=== PATIENT | male | born 2000 | race Caucasian/White ===

== ENCOUNTER 2020-10-22 13:39 | Inpatient (IN) | payer OTHER ==
[~2020-10-22] VITALS: Ht 180.3 cm; Wt 74.2 kg
[2020-10-22 14:17] LABS: HEMATOCRIT 42.8 % (42.0-52.0); HEMOGLOBIN 14.4 g/dl (13.5-17.5); MEAN CORPUSCULAR HEMOGLOBIN 30.8 pg (27.0-33.0); MEAN CORPUSCULAR HGB CONC 33.6 g/dl (32.0-36.5); MEAN CORPUSCULAR VOLUME 91.5 fl (80.0-96.0); PLATELET COUNT, AUTOMATED 253 10^3/uL (150-450); RED BLOOD COUNT 4.68 10^6/uL (4.30-6.10); WHITE BLOOD COUNT 4.9 10^3/uL (4.0-10.0)
[2020-10-22 14:44] LABS: AMPHETAMINES LEVEL URINE NEGATIVE (NEGATIVE); BARBITURATES URINE NEGATIVE (NEGATIVE); BENZODIAZEPINES URINE NEGATIVE (NEGATIVE); CANNABINOIDS URINE NEGATIVE (NEGATIVE); COCAINE METABOLITE URINE NEGATIVE (NEGATIVE); METHADONE URINE NEGATIVE (NEGATIVE); OPIATES URINE NEGATIVE (NEGATIVE); PHENCYCLIDINE URINE NEGATIVE (NEGATIVE)
[2020-10-22 14:59] LABS: ALBUMIN 4.5 GM/DL (3.2-5.2); ALT/SGPT 24 U/L (12-78); BILIRUBIN,DIRECT 0.2 MG/DL (0.0-0.2); BILIRUBIN,TOTAL 0.6 MG/DL (0.2-1.0); BLOOD UREA NITROGEN 19 MG/DL (7-18); CARBON DIOXIDE LEVEL 31 MEQ/L (21-32); CHLORIDE LEVEL 105 MEQ/L (98-107); CREATININE FOR GFR 1.08 MG/DL (0.70-1.30); ETHYL ALCOHOL (ETHANOL) < 0.003 % (0.000-0.010); GLUCOSE, FASTING 63 MG/DL (70-100); SALICYLATE LEVEL < 1.7 MG/DL (5.0-30.0); SODIUM LEVEL 140 MEQ/L (136-145); THYROID STIMULATING HORMONE 0.328 uIU/ML (0.463-3.98); TOTAL PROTEIN 7.5 GM/DL (6.4-8.2)
[2020-10-22 15:00] LABS: ACETAMINOPHEN LEVEL < 2.0 UG/ML (10.0-30.0)
[2020-10-22] MEDS ORDERED: traZODone 50 MG TAB PO PRN (17:00)
[2020-10-22] MEDS ORDERED: ACETAMINOPHEN TAB 650MG DOSE (2X325MG) PO PRN (17:00)
[2020-10-22] MEDS ORDERED: MAALOX 30 ML SUSP *UDC PO PRN (17:00)
[2020-10-22] MEDS ORDERED: MOM 30ML SUSPENSION UDC PO PRN (17:00)
[2020-10-22 17:59] VITALS: BP 126/56
[2020-10-22] MEDS ORDERED: NICOTINE 21MG/24HR 1 EA TRANSDERMAL TD SCH (21:00)
[2020-10-23 05:56] VITALS: BP 122/58
[2020-10-23] MEDS ORDERED: NICOTINE 21MG/24HR 1 EA TRANSDERMAL TD SCH (09:00)
--- NOTE | 2020-10-23 12:45 | MHHPEPDOC ---
General Date Of Admission: Oct 22, 2020 Legal Status: 9.39 Chief Complaint Patient is a self-referral to [facility] reporting depression and vague suicidal thoughts. 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 He states that He had lost a piece of equipment at work (lost a piece of a laser) He states, "I was done. I felt like I was making it a bigger mistake. I felt like it was getting worse, and said that I didn't want to be around, but I didn't have a plan to kill myself." He reports that he continued to ruminate aboput this missing equipment and it depressed. He states that his plan was seek help if he continued to feel down. "It wasn't getting better and I needed to see someone." Per the ED patient is AD 1.5 and is from [place]. ETS is 2021. He does not know why he enlisted except to say it was an impulsive decision. He has not left the country. He reports depression in High School was admitted to [facility] for 2 days for depression and suicidal thoughts. He denies history of suicidal gestures or attempts. Psychiatric Review of Systems Depression (2 or more weeks): depressed mood, anhedonia, insomnia/hypersomnia, decreased energy, difficulty concentrating, appetite changes ("feel like I have lost weight"), psychomotor changes Sylvie (4 or more days of): denies Psychosis: denies Anxiety: gen/non-specific anxiety, situational anxiety, stressor related anxiety, panic attacks (once), denies Anxiety/ 6 months or more of: restlessness, keyed up, difficulty concentrating, irritability, muscle tension, sleep disturbance Past Psychiatric History Previous Psychiatric Diagnosis: Depression Previous Psychiatric Admissions: He stated in the ED that he was admitted to a psychiatric unit for 2 days, on psychiatric interview today he states that he was in [facility]PE[facility] for 3 hours but never had an admission Suicide Attempts: No gestures or attempts Psychiatric Follow-up: will follow up with [facility] Psychiatric medications: None Past Medical History Medical Problems Report Insomnia Surgery- [place] Teeth Extraction Allergies - Bee Venom Protein Head Injury: No Seizures: No Hospitalizations: No Surgeries: No Family Medical/Psychiatric HX Medical Problems Paternal Grandmother - DM Type II Psychiatric Disorders: No Addiction: No Suicide Attemps/Completions: No Addiction History nicotine (Vapes), denies (Denies Drugs or Alcohol Abuse/Dependence) Social History Childhood: Born in [place], lived with his Father until he was 16 years old and then with his Mother thereafter, reports a good childhood. He has 5 full siblings and 2 half siblings Abuse/Trauma: denies Current Living Situation: Lives with his Education: High School Graduate, Employment: Active Duty Social Support: and Family Legal: None Marital: Since July 2020 Mental Status Examination General Appearance: well groomed, appears stated age, hospital scubs/clothing Build: average Demeanor: average Eye Contact: average Activity: average Behavior: cooperative Speech: clear, reg/rate,rhythm,volume Mood: euthymic Affect: appropriate Thought Process: logical/linear Thought Content (Delusions): none reported, denies SI, HI, AVH Thought Content (Other): none reported Thought Content (Aggressive): none reported Perception (Hallucinations): none reported Perception (Other): none reported Cognition (Impairment of): none reported Cognition(Intelligence Est.): average Oriented: Awake, Alert, Oriented times three Insight: good Judgment: Good Psychosis: Denies Diagnoses Adjustment Disorder with Depression Mood and Anxiety Generalized Anxiety Disorder A-FIB/CHADSVASC A-FIB History Current/History of A-Fib/PAF?: No Assessment Patient is a 20 year old , Active Duty, Domiciled , Male who has a history of depressive symptoms and anxiety. He and his newlywed of 2 months recently suffered a miscarriage in August of this year. He reports ruminating excessively over the loss of a piece of equipment that was eventually found. He reports that he ruminated to the point of depression and anxiety over this. He states that in the past he has been impulsive, having racing thoughts history of insomnia and having irritable mood. Patient reports that none of these symptoms of current but there seems to be some evidence of possible Bipolar Symptoms. Patient on interview denies depression and anxiety or suicidal ideation. He is observed with euthymic mood and affect and has a normal mental status exam. He is requesting discharge at this interview. Patient declined a voluntary admission and declined any medication treatment for his symptoms. Patient will be discharged as he meets no criteria for continued hospitalization and he has placed a written request for discharge. I do not see that patient is a danger to himself or others. He is not manic, psychotic, delusional, obsessive, does not report and is not observed with Auditory or Vis ual Hallucinations, He is not paranoid. He has good insight and judgment and he is able to make good and sound decisions. Initial Treatment Plan 1. Patient was admitted on a [9.39] status. 2. Complete history was obtained. 3. With patients permission, family will be contacted and database will be expanded. 4. Patients medication regimen will be reviewed and changed accordingly. 5. Patient will be provided with protected environment. 6. Patient will be treated with individual, group, and milieu therapies. 7. Patient will receive supportive psych-education. 8. Discharge planning will commence immediately. 9. Outpatient follow-up treatment will be strongly recommended. 10. The initial treatment plan will focus initially on: * Depression. * Risk for suicide. ESTIMATED LENGTH OF STAY: 1-3 DAYS. TIME SPENT COUNSELING AND COORDINATING INITIAL CARE: 50 minutes. Vital Signs Vital Signs Date Time Temp Pulse Resp B/P (MAP) Pulse Ox O2 Delivery O2 Flow Rate FiO2 10/23/20 05:56 98.4 56 16 122/58 (79) 97 Room Air Laboratory Data 24H Labs Laboratory Tests 2 10/22/20 14:03: Nucleated Red Blood Cells % (auto) 0.0, Anion Gap 4L, Calcium Level 9.0, Total Bilirubin 0.6, Direct Bilirubin 0.2, Aspartate Amino Transf (AST/SGOT) 14, Alanine Aminotransferase (ALT/SGPT) 24, Alkaline Phosphatase 61, Total Protein 7.5, Albumin 4.5, Albumin/Globulin Ratio 1.5, Thyroid Stimulating Hormone (TSH) 0.328L, Salicylates Level < 1.7L, Urine Opiates Screen NEGATIVE, Urine Methadone Screen NEGATIVE, Acetaminophen Level < 2.0L, Urine Barbiturates Screen NEGATIVE, Urine Phencyclidine Screen NEGATIVE, Urine Amphetamines Screen NEGATIVE, Urine Benzodiazepines Screen NEGATIVE, Urine Cocaine Metabolite Screen NEGATIVE, Urine Cannabinoids Screen NEGATIVE, Ethyl Alcohol Level < 0.003 10/22/20 15:34: Coronavirus (COVID-19)(PCR) NEGATIVE CBC/BMP Laboratory Tests 10/22/20 14:03 Medications No Active Prescriptions or Reported Meds Allergies Coded Allergies: bee venom protein (honey bee) (Verified Allergy, Unknown, swelling, 10/22/20) CHANDAN BRANDT NP Oct 23, 2020 11:37
--- NOTE | 2020-10-23 13:29 | MHDSPDOC ---
[facility] Discharge Summary Discharge Summary DATE OF ADMISSION: Oct 22, 2020 at 16:57 DATE OF DISCHARGE: October 23, 2020 at 1320 DISCHARGE DIAGNOSES: Adjustment Disorder with Depression Mood and Anxiety Generalized Anxiety Disorder REASON FOR ADMISSION: Patient is a self-referral to [facility] reporting depression and vague suicidal thoughts. 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 He states that He had lost a piece of equipment at work (lost a piece of a laser) He states, "I was done. I felt like I was making it a bigger mistake. I felt like it was getting worse, and said that I didn't want to be around, but I didn't have a plan to kill myself." He reports that he continued to ruminate aboput this missing equipment and it depressed. He states that his plan was seek help if he continued to feel down. "It wasn't getting better and I needed to see someone." TREATMENT AND PROGRESS ON THE UNIT: Patient was admitted to the [facility] on a 9.39 legal status he was afforded the following treatment modalities: 1) Individual Therapy 2) Group Therapy 3) Medication Management 4) Milieu Therapy 5) Safe Environment HOSPITAL COURSE: Patient requested a voluntary admission to [facility] and then he wrote a request for discharge. Patient was observed to be compliant with milieu, social with peers and cooperative with admission policies DISCHARGE ASSESSMENT: On initial interview, patient was reporting a decrease in depressive and anxiety symptoms and states that he is requesting discharge. 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 He and his newlywed of 2 months recently suffered a miscarriage in August of this year. He also reports the loss of his Grandmother at the beginning of the year. On this occasion, he reports ruminating excessively over the loss of a piece of equipment that was eventually found. He reports that he ruminated to the point of depression and anxiety over this. He states that in the past he has been impulsive, having racing thoughts history of insomnia and having irritable mood. Patient reports that none of these symptoms of current but there seems to be some evidence of possible Bipolar Symptoms. Patient on interview denies depression and anxiety or suicidal ideation. He is observed with euthymic mood and affect and has a normal mental status exam. He is requesting discharge at this interview. Patient declined a voluntary admission and declined any medication treatment for his symptoms. Patient will be discharged as he meets no criteria for continued hospitalization and he has placed a written request for discharge. I do not see that patient is a danger to himself or others. He is not manic, psychotic, d elusional, obsessive, does not report and is not observed with Auditory or Visual Hallucinations. He is not paranoid. He has good insight and judgment and he is able to make good and sound decisions. I spoke with his who reports patient is safe for discharge, she has not concerns with his return and feels that the crisis is over. 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 He states that He had lost a piece of equipment at work (lost a piece of a laser) He states, "I was done. I felt like I was making it a bigger mistake. I felt like it was getting worse, and said that I didn't want to be around, but I didn't have a plan to kill myself." He appears his stated age. He makes good eye contact and is not observed with psychomotor agitation or retardation. He is calm, cooperative and pleasant in the interview. General Appearance: well groomed, appears stated age, hospital scrubs/clothing Build: average Demeanor: average Eye Contact: average Activity: average Behavior: cooperative Speech: clear, reg, rate, rhythm, volume Mood: euthymic Affect: appropriate Thought Process: logical/linear Thought Content (Delusions): none reported, denies SI, HI, AVH Thought Content (Other): none reported Thought Content (Aggressive): none reported Perception (Hallucinations): none reported Perception (Other): none reported Cognition (Impairment of): none reported Cognition (Intelligence Est.): average Oriented: Awake, Alert, Oriented times three Insight: good Judgment: Good Psychosis: Denies MEDICATIONS ON DISCHARGE: None PLAN/FOLLOWUP ARRANGEMENTS: [facility] The amount of time spent in the coordination of care for this patient was approximately 10 minutes. Vital Signs/I&Os Vital Signs Date Time Temp Pulse Resp B/P (MAP) Pulse Ox O2 Delivery O2 Flow Rate FiO2 10/23/20 05:56 98.4 56 16 122/58 (79) 97 Room Air Laboratory Data Labs 24H Laboratory Tests 2 10/22/20 14:03: Nucleated Red Blood Cells % (auto) 0.0, Anion Gap 4L, Calcium Level 9.0, Total Bilirubin 0.6, Direct Bilirubin 0.2, Aspartate Amino Transf (AST/SGOT) 14, Alanine Aminotransferase (ALT/SGPT) 24, Alkaline Phosphatase 61, Total Protein 7.5, Albumin 4.5, Albumin/Globulin Ratio 1.5, Thyroid Stimulating Hormone (TSH) 0.328L, Salicylates Level < 1.7L, Urine Opiates Screen NEGATIVE, Urine Methadone Screen NEGATIVE, Acetaminophen Level < 2.0L, Urine Barbiturates Screen NEGATIVE, Urine Phencyclidine Screen NEGATIVE, Urine Amphetamines Screen NEGATIVE, Urine Benzodiazepines Screen NEGATIVE, Urine Cocaine Metabolite Screen NEGATIVE, Urine Cannabinoids Screen NEGATIVE, Ethyl Alcohol Level < 0.003 10/22/20 15:34: Coronavirus (COVID-19)(PCR) NEGATIVE CBC/BMP Laboratory Tests 10/22/20 14:03 Medications No Active Prescriptions or Reported Meds Allergies Coded Allergies: bee venom protein (honey bee) (Verified Allergy, Unknown, swelling, 10/22/20) CHANDAN BRANDT NP Oct 23, 2020 13:29
== END 2020-10-23 12:30 | disposition home or self-care (01) | DRG 882 ==
LOC: M ED 13:39 → M ED INP 16:57 → M PSY 17:54
PROVIDERS: ADMIT Psychiatry & Neurology Addiction Medicine; ATTEND Psychiatry & Neurology Psychiatry
DX: F43.23 Adjustment disorder with mixed anxiety and depressed mood (principal); F41.1 Generalized anxiety disorder; Z91.030 Bee allergy status; Z20.828 Contact with and (suspected) exposure to other viral communicable diseases

== ENCOUNTER 2021-06-03 22:09 | Emergency (ER) | payer OTHER ==
[~2021-06-03] VITALS: Ht 177.8 cm; Wt 77.1 kg
[2021-06-03 22:10] VITALS: BP 112/58
--- NOTE | 2021-06-04 06:37 | ECGEPIP ---
[facility] - ED Test Date: 2021-06-03 Pat Name: ALLISON PUENTES Department: Room: - Gender: Male Conventional Underwriter: HIGGINS : 2000 Requested By: KENYON Lu Order Number: [id number] Reading MD: Catracho Crocker Measurements Intervals [place] Rate: 49 P: 28 WV: 160 QRS: -18 QRSD: 94 T: 8 QT: 384 QTc: 346 Interpretive Statements Sinus bradycardia with sinus arrhythmia Minimal voltage criteria for LVH, may be normal variant ( R in aVL ) BENIGN EARLY REPOLARIZATION NONSPECIFIC T WAVE ABNORMALITY(S) NO PRIORS FOR COMPARISON Electronically Signed on 06-04-2021 6:37:23 EDT by Catracho Crocker
== END 2021-06-03 23:12 | disposition left against medical advice (07) ==
LOC: M ED 22:09
DX: Z53.21 Procedure and treatment not carried out due to patient leaving prior to being seen by health care provider (principal)

== ENCOUNTER 2021-10-26 13:55 | Emergency (ER) | payer OTHER ==
[~2021-10-26] VITALS: Ht 177.8 cm; Wt 76.7 kg
[2021-10-26] MEDS ORDERED: BUPR150T12 (14:08)
[2021-10-26 15:50] LABS: HEMATOCRIT 42.5 % (42.0-52.0); HEMOGLOBIN 14.5 g/dl (13.5-17.5); MEAN CORPUSCULAR HEMOGLOBIN 30.9 pg (27.0-33.0); MEAN CORPUSCULAR HGB CONC 34.1 g/dl (32.0-36.5); MEAN CORPUSCULAR VOLUME 90.4 fl (80.0-96.0); PLATELET COUNT, AUTOMATED 302 10^3/uL (150-450); WHITE BLOOD COUNT 7.3 10^3/uL (4.0-10.0)
[2021-10-26 16:27] LABS: ACETAMINOPHEN LEVEL < 2.0 UG/ML (10.0-30.0); ALBUMIN 4.4 GM/DL (3.2-5.2); ALT/SGPT 35 U/L (12-78); BILIRUBIN,DIRECT 0.1 MG/DL (0.0-0.2); BILIRUBIN,TOTAL 0.3 MG/DL (0.2-1.0); BLOOD UREA NITROGEN 12 MG/DL (7-18); CALCIUM LEVEL 9.4 MG/DL (8.5-10.1); CARBON DIOXIDE LEVEL 30 MEQ/L (21-32); CHLORIDE LEVEL 104 MEQ/L (98-107); CREATININE FOR GFR 1.15 MG/DL (0.70-1.30); ETHYL ALCOHOL (ETHANOL) < 0.003 % (0.000-0.010); GLOMERULAR FILTRATION RATE > 60.0 (>60); GLUCOSE, FASTING 96 MG/DL (70-100); POTASSIUM SERUM 4.5 MEQ/L (3.5-5.1); SALICYLATE LEVEL < 1.7 MG/DL (5.0-30.0); SODIUM LEVEL 139 MEQ/L (136-145)
[2021-10-26 16:39] LABS: AMPHETAMINES LEVEL URINE NEGATIVE (NEGATIVE); BARBITURATES URINE NEGATIVE (NEGATIVE); BENZODIAZEPINES URINE NEGATIVE (NEGATIVE); CANNABINOIDS URINE NEGATIVE (NEGATIVE); COCAINE METABOLITE URINE NEGATIVE (NEGATIVE); METHADONE URINE NEGATIVE (NEGATIVE); OPIATES URINE NEGATIVE (NEGATIVE); PHENCYCLIDINE URINE NEGATIVE (NEGATIVE)
[2021-10-26] MEDS ORDERED: hydrOXYzine 25 MG TAB PO STA (19:46)
[2021-10-26] MEDS ORDERED: HYDR-3363 PO (19:52)
[2021-10-26 20:07] VITALS: BP 140/88
== END 2021-10-26 20:08 | disposition home or self-care (01) ==
LOC: M ED 13:55
DX: F32.A Depression, unspecified (principal); F17.200 Nicotine dependence, unspecified, uncomplicated; Z91.030 Bee allergy status; Z63.79 Other stressful life events affecting family and household; Z63.0 Problems in relationship with spouse or partner

== ENCOUNTER 2022-03-03 04:28 | Emergency (ER) | payer OTHER ==
[~2022-03-03] VITALS: Ht 177.8 cm; Wt 77.8 kg
[~2022-03-03 04:28] MED LIST: BUPR150T12; HYDR-3363 PO
[2022-03-03] MEDS ORDERED: ACETAMINOPHEN 325 MG TAB PO ONE (07:30)
[2022-03-03 07:58] VITALS: BP 125/58
== END 2022-03-03 08:58 | disposition home or self-care (01) ==
LOC: M ED 04:28
DX: S90.211A Contusion of right great toe with damage to nail, initial encounter (principal); W22.8XXA Striking against or struck by other objects, initial encounter; F41.8 Other specified anxiety disorders; G47.00 Insomnia, unspecified; Z91.030 Bee allergy status; Y92.009 Unspecified place in unspecified non-institutional (private) residence as the place of occurrence of the external cause; Y93.B3 Activity, free weights; Y99.9 Unspecified external cause status

== ENCOUNTER 2022-03-25 14:10 | Observation (INO) | payer OTHER ==
[~2022-03-25] VITALS: Ht 177.8 cm; Wt 75.5 kg
[2022-03-25] MEDS ORDERED: CHARCOAL ACTIVATED LIQUID 25 GM/120 ML BTL PO ONE (14:20)
[2022-03-25 14:35] LABS: BASO % 0.7 % (0.0-1.0); EOS # 0.1 10^3/uL (0.0-0.5); EOS % 2.2 % (0.0-3.0); HEMATOCRIT 39.8 % (42.0-52.0); LYMPH # 2.5 10^3/uL (1.5-5.0); LYMPH % 42.7 % (24.0-44.0); MEAN CORPUSCULAR HEMOGLOBIN 30.6 pg (27.0-33.0); MEAN CORPUSCULAR HGB CONC 35.2 g/dl (32.0-36.5); MEAN CORPUSCULAR VOLUME 87.1 fl (80.0-96.0); MONO # 0.5 10^3/uL (0.0-0.8); MONO % 7.9 % (2.0-8.0); NEUTROPHILS # 2.7 10^3/uL (1.5-8.5); NEUTROPHILS % 46.3 % (36.0-66.0); PLATELET COUNT, AUTOMATED 253 10^3/uL (150-450); RED BLOOD COUNT 4.57 10^6/uL (4.30-6.10); WHITE BLOOD COUNT 5.9 10^3/uL (4.0-10.0)
[2022-03-25] MEDS ORDERED: LIDOCAINE 5% (LIDODERM) PATCH TD ONE (14:50)
[2022-03-25 15:06] LABS: OSMOLALITY SERUM 289 MOSM/KG (275-295)
[2022-03-25 15:13] LABS: ACETAMINOPHEN LEVEL < 2.0 UG/ML (10.0-30.0); ALBUMIN 4.2 GM/DL (3.2-5.2); ALT/SGPT 29 U/L (12-78); BILIRUBIN,DIRECT 0.1 MG/DL (0.0-0.2); BILIRUBIN,TOTAL 0.6 MG/DL (0.2-1.0); BLOOD UREA NITROGEN 15 MG/DL (7-18); CALCIUM LEVEL 9.2 MG/DL (8.5-10.1); CARBON DIOXIDE LEVEL 26 MEQ/L (21-32); CHLORIDE LEVEL 107 MEQ/L (98-107); CREATININE FOR GFR 1.08 MG/DL (0.70-1.30); ETHYL ALCOHOL (ETHANOL) 0.004 % (0.000-0.010); GLOMERULAR FILTRATION RATE > 60.0 (>60); GLUCOSE, FASTING 110 MG/DL (70-100); POTASSIUM SERUM 3.7 MEQ/L (3.5-5.1); SALICYLATE LEVEL < 1.7 MG/DL (5.0-30.0); SODIUM LEVEL 140 MEQ/L (136-145); THYROID STIMULATING HORMONE 0.646 uIU/ML (0.358-3.740); TOTAL PROTEIN 7.2 GM/DL (6.4-8.2)
[2022-03-25] MEDS ORDERED: ONDANSETRON 4MG/2ML VIAL IV ONE (15:35)
[2022-03-25 17:17] LABS: AMPHETAMINES LEVEL URINE NEGATIVE (NEGATIVE); BARBITURATES URINE NEGATIVE (NEGATIVE); BENZODIAZEPINES URINE NEGATIVE (NEGATIVE); CANNABINOIDS URINE NEGATIVE (NEGATIVE); COCAINE METABOLITE URINE NEGATIVE (NEGATIVE); METHADONE URINE NEGATIVE (NEGATIVE); OPIATES URINE NEGATIVE (NEGATIVE); PHENCYCLIDINE URINE NEGATIVE (NEGATIVE)
[2022-03-25 17:18] LABS: RSV AMPLIFICATION NEGATIVE (NEGATIVE)
[2022-03-25] MEDS ORDERED: LIDO1PAD TOP (17:25)
[2022-03-25] MEDS ORDERED: CYCL-707 PO (17:25)
[2022-03-25] MEDS ORDERED: HOME MED LIST COMPLETE! XX SCH (17:25)
[2022-03-25] MEDS ORDERED: MELO15TA28 PO (17:25)
[2022-03-25 21:46] VITALS: BP 118/63
[2022-03-26 01:42] VITALS: BP 120/60
[2022-03-26] MEDS ORDERED: **NOTE PATIENT COMMENT** MISC XX ONE (03:00)
[2022-03-26 04:50] VITALS: BP 115/62
[2022-03-26 14:00] VITALS: BP 137/67
== END 2022-03-26 14:42 ==
LOC: EDBD 14:10 → M ED 14:10 → M ED INP 14:11 → ENRESERVTM 19:20 → ENRESERVDT 19:20 → M 4MAIN 21:52
PROVIDERS: ADMIT General Practice; ATTEND General Practice
DX: T43.292A Poisoning by other antidepressants, intentional self-harm, initial encounter (principal); T14.91XA Suicide attempt, initial encounter; F32.2 Major depressive disorder, single episode, severe without psychotic features; F41.9 Anxiety disorder, unspecified; U07.1 COVID-19; Z79.899 Other long term (current) drug therapy; Z91.030 Bee allergy status; F17.290 Nicotine dependence, other tobacco product, uncomplicated; Y92.89 Other specified places as the place of occurrence of the external cause
CPT/HCPCS: 71045; 80048; 80076; 80143; 80307; 82077; 82550; 83930; 84443; 85025; 87631; 93005; 93041; 94760; 96374; 99285; J2405

== ENCOUNTER 2022-03-26 12:14 | Inpatient (IN) | payer OTHER ==
[~2022-03-26] VITALS: Ht 177.8 cm; Wt 74.0 kg
[~2022-03-26 12:14] MED LIST changes: +CYCL-707 PO; +LIDO1PAD TOP; +MELO15TA28 PO
[2022-03-26] MEDS ORDERED: MOM 30ML SUSPENSION UDC PO PRN (13:10)
[2022-03-26] MEDS ORDERED: MAALOX 30 ML SUSP *UDC PO PRN (13:10)
[2022-03-26] MEDS ORDERED: ACETAMINOPHEN TAB 650MG DOSE (2X325MG) PO PRN (13:10)
[2022-03-26] MEDS ORDERED: traZODone 50 MG TAB PO PRN (13:10)
[2022-03-26 16:03] VITALS: BP 131/74
[2022-03-27 07:00] VITALS: BP 114/59
[2022-03-27] MEDS: MELOXICAM (MOBIC) 7.5 MG TAB PO SCH ×2 (09:00→10:13)
[2022-03-27] MEDS ORDERED: NICOTINE POLACRILEX 2 MG GUM PO PRN (10:50)
[2022-03-27] MEDS: LIDOCAINE 5% (LIDODERM) PATCH TD SCH (11:10)
[2022-03-27] MEDS: VENLAFAXINE **XR** 37.5 MG CAPSULE PO SCH (11:10)
[2022-03-27] MEDS: NICOTINE 21MG/24HR 1 EA TRANSDERMAL TD PRN (11:10)
[2022-03-27 18:00] VITALS: BP 111/65
[2022-03-27] MEDS: **NOTE PATIENT COMMENT** MISC XX SCH (21:54)
[2022-03-28 06:12] VITALS: BP 112/61
[2022-03-28] MEDS: MELOXICAM (MOBIC) 7.5 MG TAB PO SCH (09:00)
[2022-03-28] MEDS: LIDOCAINE 5% (LIDODERM) PATCH TD SCH (09:25)
[2022-03-28] MEDS: VENLAFAXINE **XR** 37.5 MG CAPSULE PO SCH (09:25)
[2022-03-28] MEDS: NICOTINE 21MG/24HR 1 EA TRANSDERMAL TD PRN (09:26)
[2022-03-28 16:00] VITALS: BP 140/60
[2022-03-28] MEDS: **NOTE PATIENT COMMENT** MISC XX SCH (20:58)
[2022-03-29 06:18] VITALS: BP 115/59
[2022-03-29] MEDS: MELOXICAM (MOBIC) 7.5 MG TAB PO SCH ×2 (09:00→10:12)
[2022-03-29] MEDS: VENLAFAXINE **XR** 37.5 MG CAPSULE PO SCH (10:12)
[2022-03-29] MEDS: LIDOCAINE 5% (LIDODERM) PATCH TD SCH (10:14)
[2022-03-29] MEDS ORDERED: NICO21PAT TD (12:50)
[2022-03-29] MEDS ORDERED: NICO2GUM PO (12:50)
[2022-03-29] MEDS ORDERED: VENL37.598 PO (12:50)
[2022-03-29] MEDS ORDERED: TRAZ-252 PO (12:50)
== END 2022-03-29 13:55 | disposition home or self-care (01) | DRG 885 ==
LOC: M PSY 14:54
PROVIDERS: ADMIT Psychiatry & Neurology Psychiatry; ATTEND Student in an Organized Health Care Education/Training Program
DX: F33.1 Major depressive disorder, recurrent, moderate (principal); U07.1 COVID-19; F17.200 Nicotine dependence, unspecified, uncomplicated; Z91.030 Bee allergy status; Z79.899 Other long term (current) drug therapy